=== PATIENT | male | born 1950 | race American Indian/Alaskan Native ===

== ENCOUNTER 2017-06-12 03:48 | Emergency (ER) | payer MEDICARE ==
[2017-06-12 05:44] LABS: Alanine Aminotransferase 17 units/L (7-56); Albumin 4.3 g/dL (3.9-5); Albumin/Globulin Ratio 1.3 %; Alkaline Phosphatase 75 units/L (35-129); Anion Gap 18 mmol/L; BUN/Creatinine Ratio 18; Blood Urea Nitrogen 14 mg/dL (9-20); Carbon Dioxide 23 mmol/L (22-30); Chloride 104.3 mmol/L (98-107); Glucose 120 mg/dL (75-100); Potassium 3.9 mmol/L (3.6-5.0); Sodium 141 mmol/L (137-145); Total Protein 7.7 g/dL (6.3-8.2)
--- NOTE | 2017-06-12 07:08 | Cat Scan Report ---
FINAL REPORT EXAM: CT NECK W CON HISTORY: foreign body TECHNIQUE: CT images are acquired through the neck following intravenous administration of contrast. Transaxial , coronal and sagittal reformations are provided. PRIORS: None. FINDINGS: Patent airway. No radiodense foreign body. Suprahyoid mucosal spaces of the neck are unremarkable. Incomplete evaluation of the lung apices is unremarkable. The cervical spine is intact with diffuse mild sequela of cervical disc degeneration. Major vasculature of the neck is normal in caliber. Focal sphenoid and right maxillary mucosal thickening may represent mucous retention cysts. Posterior nasopharynx is unremarkable. IMPRESSION: No radiodense foreign body or abnormality seen involving the mucosal spaces of the neck.
[2017-06-12 12:28] VITALS: BP 140/80
--- NOTE | 2017-06-12 15:01 | Emergency Department Report ---
ED ENT HPI - General Chief complaint: Sore Throat Stated complaint: THROAT PAIN Time Seen by Provider: 06/12/17 13:20 Source: patient Mode of arrival: Ambulatory Limitations: No Limitations - History of Present Illness Initial comments: 66-year-old male past medical history none presents with complaint of pain behind his right lower molar. Patient states that while eating at a fast food restaurant approximately 5 days ago he bit on a piece of plastic which may have been an food. States he removed a small piece of plastic which felt lodged behind his right rear molar tooth #32. States that he is having some soreness in his mouth near that area. States that he made an incident report with the restaurant that he was eating in. Denies difficulty swallowing solids or liquids denies chest pain denies nausea vomiting or diarrhea denies any hematopoiesis or melena. Patient is awake alert and oriented 3 no audible wheezing or stridor no dyspnea, no respiratory retractions. No trismus and no drooling. Is awake alert and oriented 3 and nontoxic appearing. Patient states adamantly that he did not swallow any plastic and does not have a foreign body sensation in throat at this time. MD complaint: tooth pain (pain behind right rear molar tooth #32) Onset/Timin -: days(s) Location: tooth # (32) Severity: moderate Severity scale (0 -10): 5 Quality: aching Consistency: intermittent Improves with: none Worsens with: eating Associated Symptoms: toothache - Related Data Previous Rx's Medication Instructions Recorded Last Taken Type Dextromethorphan/Benzocaine 1 each PO Q4H PRN #1 box 06/12/17 Unknown Rx [Cepacol Sorethroat-Cough Jesenia] Ibuprofen [Motrin] 800 mg PO Q8HR PRN #30 tablet 06/12/17 Unknown Rx Allergies Allergy/AdvReac Type Severity Reaction Status Date / Time monosodium glutamate Allergy Headache Verified 07/03/16 00:06 ED Dental HPI - General Chief complaint: Sore Throat Stated complaint: THROAT PAIN Time Seen by Provider: 06/12/17 13:20 Source: patient Mode of arrival: Ambulatory Limitations: No Limitations - Related Data Previous Rx's Medication Instructions Recorded Last Taken Type Dextromethorphan/Benzocaine 1 each PO Q4H PRN #1 box 06/12/17 Unknown Rx [Cepacol Sorethroat-Cough Jesenia] Ibuprofen [Motrin] 800 mg PO Q8HR PRN #30 tablet 06/12/17 Unknown Rx Allergies Allergy/AdvReac Type Severity Reaction Status Date / Time monosodium glutamate Allergy Headache Verified 07/03/16 00:06 ED Review of Systems ROS: Stated complaint: THROAT PAIN Other details as noted in HPI Constitutional: denies: chills, fever Eyes: denies: eye pain, eye discharge, vision change ENT: as per HPI, dental pain. denies: ear pain, throat pain Respiratory: denies: cough, shortness of breath, wheezing Cardiovascular: denies: chest pain, palpitations Endocrine: no symptoms reported Gastrointestinal: denies: abdominal pain, nausea, diarrhea Genitourinary: denies: urgency, dysuria Musculoskeletal: denies: back pain, joint swelling, arthralgia Skin: denies: rash, lesions Neurological: denies: headache, weakness, paresthesias Psychiatric: denies: anxiety, depression Hematological/Lymphatic: denies: easy bleeding, easy bruising ED Past Medical Hx - Past Medical History Previous Medical History?: Yes Additional medical history: CAD - Surgical History Past Surgical History?: Yes Hx Coronary Stent: Yes (X1) - Social History Smoking Status: Never Smoker - Medications Home Medications: Home Medications Medication Instructions Recorded Confirmed Last Taken Type Dextromethorphan/Benzocaine 1 each PO Q4H PRN #1 box 06/12/17 Unknown Rx [Cepacol Sorethroat-Cough Jesenia] Ibuprofen [Motrin] 800 mg PO Q8HR PRN #30 tablet 06/12/17 Unknown Rx ED Physical Exam - General Limitations: No Limitations General appearance: alert, in no apparent distress - Head Head exam: Present: atraumatic, normocephalic - Eye Eye exam: Present: normal appearance, PERRL, EOMI - ENT ENT exam: Present: mucous membranes moist - Expanded ENT Exam Expanded Teeth exam: Present: dental tenderness # (32) 1 - Other (patient complains of some tenderness here, no visible foreign body, no visible hematoma or laceration to gumline or underneath the tongue) Throat exam: Positive: normal inspection (oropharynx unremarkable open wide and patent uvula midline) - Neck Neck exam: Present: normal inspection, full ROM - Respiratory Respiratory exam: Present: normal lung sounds bilaterally. Absent: respiratory distress - Cardiovascular Cardiovascular Exam: Present: regular rate, normal rhythm. Absent: systolic murmur, diastolic murmur, rubs, gallop - GI/Abdominal GI/Abdominal exam: Present: soft, normal bowel sounds - Rectal Rectal exam: Present: deferred - Extremities Exam Extremities exam: Present: normal inspection - Back Exam Back exam: Present: normal inspection - Neurological Exam Neurological exam: Present: alert, oriented X3 - Psychiatric Psychiatric exam: Present: normal affect, normal mood - Skin Skin exam: Present: warm, dry, intact, normal color. Absent: rash ED Course Vital Signs 06/12/17 06/12/17 04:19 12:27 Temperature 98.4 F 98.7 F Pulse Rate 93 H 91 H Respiratory 20 18 Rate Blood Pressure 140/85 Blood Pressure 140/80 [Left] O2 Sat by Pulse 98 100 Oximetry ED Medical Decision Making - Lab Data Result diagrams: 06/12/17 05:11 - Medical Decision Making a/p: foreign body in mouth 1- pt states he pulled out a small peice of plastic from behing his lower right molar region, has been experiencing soreness there 2- no dysphagia or dysphonia, eating and drinking, speaking in full sentences, tolerating PO without difficulty Critical care attestation.: If time is entered above; I have spent that time in minutes in the direct care of this critically ill patient, excluding procedure time. ED Disposition Clinical Impression: Pain, dental, Foreign body in mouth, sequela Disposition: DC-01 TO HOME OR SELFCARE Is pt being admited?: No Does the pt Need Aspirin: No Condition: Stable Instructions: Foreign Body Ingestion (ED) Prescriptions: Dextromethorphan/Benzocaine [Cepacol Sorethroat-Cough Jesenia] 1 each PO Q4H PRN #1 box PRN Reason: Toothache Ibuprofen [Motrin] 800 mg PO Q8HR PRN #30 tablet PRN Reason: Pain Referrals: [facility] [Provider Group] - 3-5 Days ENT [facility] [Provider Group] - 3-5 Days ENT [facility] [Provider Group] - 3-5 Days [facility] [Outside] - 3-5 Days Forms: Work/School Release Form(ED) Time of Disposition: 14:37
== END 2017-06-12 14:51 | disposition home or self-care (01) ==
LOC: ED 03:48
DX: T18 Foreign body in alimentary tract (principal); X58.XXXS Exposure to other specified factors, sequela; K08.89 Other specified disorders of teeth and supporting structures; I25.10 Atherosclerotic heart disease of native coronary artery without angina pectoris; Z88.8 Allergy status to other drugs, medicaments and biological substances
CPT/HCPCS: 36415; 70491; 80053; 99284; Q9967

== ENCOUNTER 2017-07-29 03:18 | Emergency (ER) | payer MEDICARE ==
[2017-07-29 03:53] VITALS: BP 113/83
[2017-07-29] MEDS ORDERED: TYLENOL ONE (04:04)
[2017-07-29] MEDS ORDERED: TYLENOL PO ONE (04:04)
[2017-07-29 04:23] LABS: Basophils % (Auto) 0.6 % (0.0-1.8); Eosinophils % (Auto) 0.5 % (0.0-4.3); Hematocrit 45.8 % (35.5-45.6); Hemoglobin 15.1 gm/dl (11.8-15.2); Mean Corpuscular HGB Conc 33 % (32-34); Mean Corpuscular Hemoglobin 27 pg (28-32); Mean Corpuscular Volume 83 fl (84-94); Platelet Count 234 K/mm3 (140-440); Red Blood Count 5.54 M/mm3 (3.65-5.03); White Blood Count 10.8 K/mm3 (4.5-11.0)
[2017-07-29 04:38] LABS: Alanine Aminotransferase 12 units/L (7-56); Albumin 4.3 g/dL (3.9-5); Albumin/Globulin Ratio 1.3 %; Alkaline Phosphatase 93 units/L (35-129); Anion Gap 23 mmol/L; BUN/Creatinine Ratio 14; Blood Urea Nitrogen 11 mg/dL (9-20); Carbon Dioxide 23 mmol/L (22-30); Chloride 101.2 mmol/L (98-107); Glucose 138 mg/dL (75-100); Lipase 33 units/L (13-60); Potassium 3.8 mmol/L (3.6-5.0); Sodium 143 mmol/L (137-145); Total Protein 7.7 g/dL (6.3-8.2)
--- NOTE | 2017-07-29 11:42 | Emergency Department Report ---
ED Chest Pain HPI - General Chief Complaint: Chest Pain Stated Complaint: CHEST PAIN Source: patient Mode of arrival: Ambulatory Limitations: No Limitations - History of Present Illness Severity scale (0 -10): 4 - Related Data Previous Rx's Medication Instructions Recorded Last Taken Type Dextromethorphan/Benzocaine 1 each PO Q4H PRN #1 box 06/12/17 Unknown Rx [Cepacol Sorethroat-Cough Jesenia] Ibuprofen [Motrin] 800 mg PO Q8HR PRN #30 tablet 06/12/17 Unknown Rx Allergies Allergy/AdvReac Type Severity Reaction Status Date / Time monosodium glutamate Allergy Headache Verified 07/03/16 00:06 ED Review of Systems ROS: Stated complaint: CHEST PAIN Other details as noted in HPI ED Past Medical Hx - Past Medical History Previous Medical History?: Yes Additional medical history: CAD - Surgical History Past Surgical History?: Yes Hx Coronary Stent: Yes (X1) - Social History Smoking Status: Never Smoker Substance Use Type: None - Medications Home Medications: Home Medications Medication Instructions Recorded Confirmed Last Taken Type Dextromethorphan/Benzocaine 1 each PO Q4H PRN #1 box 06/12/17 Unknown Rx [Cepacol Sorethroat-Cough Jesenia] Ibuprofen [Motrin] 800 mg PO Q8HR PRN #30 tablet 06/12/17 Unknown Rx ED Physical Exam - General Limitations: No Limitations ED Course Vital Signs 07/29/17 03:40 Temperature 97.8 F Pulse Rate 78 Respiratory 18 Rate Blood Pressure 113/83 [Right] O2 Sat by Pulse 100 Oximetry ED Medical Decision Making - Lab Data Result diagrams: 07/29/17 03:39 07/29/17 03:48 Critical care attestation.: If time is entered above; I have spent that time in minutes in the direct care of this critically ill patient, excluding procedure time. ED Disposition Condition: Stable Referrals: PRIMARY CARE, [Primary Care Provider] - 3-5 Days
== END 2017-07-29 04:00 | disposition left against medical advice (07) ==
LOC: ED 03:18
DX: R07.9 Chest pain, unspecified (principal); I25.10 Atherosclerotic heart disease of native coronary artery without angina pectoris
CPT/HCPCS: 36415; 80053; 83690; 84484; 85025; 93005; 93010